=== PATIENT | female | born 1995 | race Hispanic/Latino ===

== ENCOUNTER 2019-06-29 21:16 | Emergency (ER) | payer SELFPAY ==
[~2019-06-29] VITALS: Ht 162.6 cm; Wt 109.0 kg
[~2019-06-29 21:16] MED LIST: BACTRIM DS1 TAB PO; CEPHALEXIN500 M1 PO; CEPHALEXIN500 MG PO; CIPROFLOXACN500 MG PO; IBUPROFEN600 MG PO; KEFLEX500 MG PO; LORTAB 5 OR; LORTAB 7.57.5 MG PO; NO; NO MEDS; OXYCODONE5 MG OR; PRE-NATAL PO; PRENATABS FA
[2019-06-29 22:20] VITALS: BP 110/68
[2019-06-29 22:38] LABS: HEMATOCRIT 35.8 % (37.0-47.0); HEMOGLOBIN 11.9 g/dl (12.0-16.0); IMMATURE GRANULOCYTES 0.3 % (0.0-5.0); MEAN CELL VOLUME 84.6 fL CALC (80.0-100.0); MEAN CORPUSCULAR HGB 28.1 pG CALC (26.0-32.0); MEAN CORPUSCULAR HGB CONC 33.2 g/L CALC (32.0-36.0); NEUT# 3.37 thou/uL (2.00-7.15); RED BLOOD COUNT 4.23 mill/uL (4.20-5.60); RED CELL DISTRI WIDTH 14.7 % (11.5-15.5); URINE BILIRUBIN - DIPSTICK NEGATIVE (NEGATIVE); URINE BLOOD DIPSTICK SMALL (NEGATIVE); URINE COLOR YELLOW; URINE GLUCOSE - DIPSTICK NEGATIVE (NEGATIVE); URINE KETONE NEGATIVE (NEGATIVE); URINE LEUK ESTERASE NEGATIVE (NEGATIVE); URINE PROTEIN - DIPSTICK NEGATIVE (NEG-TRACE); URINE SPECIFIC GRAVITY 1.025; URINE UROBILINOGEN - DIPSTICK 0.2 E.U./dL (0.2)
[2019-06-29 22:40] LABS: URINE NITRITE - DIPSTICK POSITIVE (Negative)
[2019-06-29 22:50] LABS: ALBUMIN 3.7 g/dL (3.2-5.0); ALKALINE PHOSPHATASE 75 u/l (38-126); ANION GAP 12 (6-22 (CALC)); BUN 6 mg/dL (7-17); BUN/CREATININE RATIO 13 (12-20 (CALC)); CARBON DIOXIDE 21 mmol/l (22-30); CHLORIDE 108 mmol/l (95-108); CREATININE 0.5 mg/dL (0.5-1.0); GFR > 60 ML/MIN (>=60 (CALC)); GFR FOR AFR.AMER. > 60 ML/MIN (>=60 (CALC)); POTASSIUM 3.7 mmol/l (3.5-5.1); SGOT/AST 23 u/l (14-36); SODIUM 137 mmol/l (137-146); TOTAL PROTEIN 7.1 g/dL (6.3-8.2)
[2019-06-29 22:51] LABS: URINE BACTERIA MANY hpf; URINE RBC 0-2 RBC/hpf (0-5); URINE SQUAMOUS EPITHELIAL CELL FEW EPI/hpf (0-FEW)
[2019-06-29 22:53] LABS: BILIRUBIN, TOTAL 0.3 mg/dL (0.0-1.4)
[2019-06-29 23:06] LABS: BETA-HCG, QUANT(RESULT NUMBER) 664 mIU/mL
[2019-06-29] MEDS ORDERED: MACRODANTIN100 MG PO (23:39)
== END 2019-06-30 00:30 | disposition home or self-care (01) | DRG 832 ==
LOC: ED 21:16
DX: O20.0 Threatened abortion (principal); O23.41 Unspecified infection of urinary tract in pregnancy, first trimester; B96.20 Unspecified Escherichia coli [E. coli] as the cause of diseases classified elsewhere; O99.331 Smoking (tobacco) complicating pregnancy, first trimester; F17.200 Nicotine dependence, unspecified, uncomplicated; Z3A.00 Weeks of gestation of pregnancy not specified

== ENCOUNTER 2019-12-19 | Emergency (ER) | payer OTHER ==
[~2019-12-19] MED LIST changes: +MACRODANTIN100 MG PO
== END 2019-12-19 16:00 | disposition left against medical advice (07) ==
DX: O26.893 Other specified pregnancy related conditions, third trimester (principal); R10.9 Unspecified abdominal pain; O9A.213 Injury, poisoning and certain other consequences of external causes complicating pregnancy, third trimester; S00.11XA Contusion of right eyelid and periocular area, initial encounter; Y04.0XXA Assault by unarmed brawl or fight, initial encounter; Y92.009 Unspecified place in unspecified non-institutional (private) residence as the place of occurrence of the external cause; S10.91XA Abrasion of unspecified part of neck, initial encounter; Z3A.30 30 weeks gestation of pregnancy; Z91.19 Patient's noncompliance with other medical treatment and regimen

== ENCOUNTER 2020-11-29 16:00 | Observation (INO) | payer OTHER ==
[~2020-11-29] VITALS: Ht 160 cm; Wt 121.2 kg
--- NOTE | 2020-11-29 16:07 | NUR ---
PT AMBULATED TO ROOM # 12 WITH STEADY GAIT FOR BEDSIDE TRIAGE
[2020-11-29 17:26] LABS: HEMOGLOBIN 13.6 g/dl (12.0-16.0); IMMATURE GRANULOCYTES 0.3 % (0.0-5.0); MEAN CELL VOLUME 88.2 fL CALC (80.0-100.0); MEAN CORPUSCULAR HGB 28.6 pG CALC (26.0-32.0); MEAN CORPUSCULAR HGB CONC 32.4 g/dL CAL (32.0-36.0); NEUT# 4.8 thou/uL (2.00-7.15); RED BLOOD COUNT 4.76 mill/uL (4.20-5.60); RED CELL DISTRI WIDTH 13.9 % (11.5-15.5)
[2020-11-29 17:30] LABS: URINE BILIRUBIN - DIPSTICK NEGATIVE (NEGATIVE); URINE BLOOD DIPSTICK TRACE-INTACT (NEGATIVE); URINE COLOR YELLOW; URINE GLUCOSE - DIPSTICK NEGATIVE (NEGATIVE); URINE KETONE NEGATIVE (NEGATIVE); URINE LEUK ESTERASE NEGATIVE (NEGATIVE); URINE NITRITE - DIPSTICK NEGATIVE (Negative); URINE PH 6.5 (4.5-8.0); URINE PROTEIN - DIPSTICK NEGATIVE (NEG-TRACE); URINE SPECIFIC GRAVITY 1.025; URINE UROBILINOGEN - DIPSTICK 0.2 E.U./dL (0.2)
--- NOTE | 2020-11-29 17:30 | NUR ---
UPON REASSESSMENT PT STATES THAT HER PAIN HAS DECREASED FORM 8/10 TO A 4/10. PT IS RESTING WITH LIGHTS DIMMED FOR COMFORT
[2020-11-29 17:44] LABS: ALBUMIN 4.3 g/dL (3.2-5.0); ALKALINE PHOSPHATASE 96 u/l (38-126); ANION GAP 12 (6-22 (CALC)); BUN 9 mg/dL (7-17); BUN/CREATININE RATIO 16 (12-20 (CALC)); CARBON DIOXIDE 23 mmol/l (22-30); CHLORIDE 104 mmol/l (95-108); CREATININE 0.6 mg/dL (0.5-1.0); GFR > 60 ML/MIN (>=60 (CALC)); GFR FOR AFR.AMER. > 60 ML/MIN (>=60 (CALC)); POTASSIUM 4.4 mmol/l (3.5-5.1); SODIUM 135 mmol/l (137-146); TOTAL PROTEIN 8.4 g/dL (6.3-8.2)
[2020-11-29 17:48] LABS: BILIRUBIN, TOTAL 0.9 mg/dL (0.0-1.4); SGOT/AST 53 u/l (14-36)
--- NOTE | 2020-11-29 18:47 | NUR ---
UPON REASSESSMENT PT STATES THAT SHE HAS A HEADACHE OF 6/10. MD NOTIFIED AND MEDICATION IS ORDERED
--- NOTE | 2020-11-29 18:58 | NUR ---
GAVE REPORT TO SUSANNE
--- NOTE | 2020-11-29 19:20 | NUR ---
PT RESTING. NAD. VSS. ADVISED OF ADMISSION. COVID SWAB OBTAINED.
--- NOTE | 2020-11-29 21:10 | NUR ---
IV SITE BURING. FLUIDS AND ANTIBIOTICS STOPPED. ATTEMPTED IV X 2 WITHOUT RELIEF.
--- NOTE | 2020-11-29 21:14 | NUR ---
NEW IV ESTABLISHED. PATIENT AMBULATORY TO BATHROOM WITHOUT ASSIST. AWARE OF PENDING ADMISSION AND TRANSPORT TO FLOOR.
--- NOTE | 2020-11-29 21:36 | NUR ---
IV RESTARTED AND MEDS HANGING. INFILTRATED WHEN TORADOL GIVEN SO TORADOL RE-GIVEN.
--- NOTE | 2020-11-29 22:38 | NUR ---
TO FLOOR WITH HEADING UP MACHINE OPERATOR.
[2020-11-29 22:39] VITALS: BP 113/62
--- NOTE | 2020-11-29 22:45 | NUR ---
PT ARRIVED TO MED SURG UNIT VIA WC ACCOMPANIED BY ED SOCIAL MEDIA EXECUTIVE. PT APPEARS TO BE IN STABLE CONDITION AND IS BEING SETTLED IN BY COMMERCIAL LINES ACCOUNT MANAGER. V/S ASSESSED TO BE STABLE, ORIENTED TO BED, CALL SYSTEM, LIGHTS AND TV. DIET HAS BEEN EXPLAINED TO PT TO BE CLEAR LIQUID DIET UNTIL MIDNIGHT AND THEN SHE WILL GO NPO AFTER MIDNIGHT FOR PROBABLE SURGERY IN AM. I ALSO EXPLAINED TO HER THAT THE SURGEON WILL COME TO SEE HER PRIOR TO SURGERY IN THE MORNING AND THEN HAVE HER SIGN CONSENT FORM, THAT WAY SHE HAS A CLEAR UNDERSTANDING OF WHAT HE WILL BE DOING, SHE VERBALIZED UNDERSTANDING.
--- NOTE | 2020-11-29 23:47 | NUR ---
SPOKE WITH CAM AT [facility], SHE INSTRUCTED ME TO GO AHEAD AND ADMINISTER MIDNIGHT ZOSYN DOSE EVEN THOUGH PREVISOUS DOSE WAS NOT ADMINISTERED UNTIL 2048. SHE STATED WE DID NOT NEED TO DELAY OR SKIP THE 2400 DOSE AND THAT IT SHOULD BE GIVEN SCHEDULED.
[2020-11-30] VITALS (9 sets, daily range): BP systolic 98–127; BP diastolic 60–86
--- NOTE | 2020-11-30 00:09 | NUR ---
PT MEDICATED FOR PAIN 8/10 ON PAIN SCALE. PT APPEARS CALM AT THIS TIME. IVF RUNNING/SITE APPEARS HEALTHY. REVIEWED NPO DIET WITH PT, VERBALIZED UNDERSTANDING. SHE IS ASKING WHAT TIME HER SURGERY IS TOMORROW, DISCUSSED POSSIBLE TIMING WITH WITH HER AND EXPLAINED THAT WE WILL NOT HAVE AN EXACT TIME TONIGHT, VERBALIZED UNDERSTANDING.
--- NOTE | 2020-11-30 00:22 | NUR ---
PT MEDICATED FOR IV ANTIBIOTIC THERAPY AT THIS TIME. LIGHTS TURNED DOWN, PT REPORTS THAT SHE IS STARTING TO FEEL SLIGHT RELIEF FROM PAIN MEDICATION. EYES ARE CLOSED, PT IS RESTING.
--- NOTE | 2020-11-30 05:49 | NUR ---
PT WAS SLEEPING, AWOKE TO MY VOICE. PT REPORTED PAIN 8/10 ON PAIN SCALE, MEDICATED ORDERS PROVIDE AND ARE SCHEDULED FOR PAIN CONTROL AND WITH IV ANTIBIOTIC THERAPY AT THIS TIME. PT WAS SLEEPING AGAIN PRIOR TO MY LEAVING THE ROOM. CALL LIGHT AT SIDE.
--- NOTE | 2020-11-30 10:44 | NUR ---
PT ARRIVED VIA [facility] ACCOMPANIED BY MIRIAN COREA. PT IN STABLE CONDITION A&O X3. PT REPORTS RELIEF OF PAIN, BUT STATES IT HAS GOTTEN "WORSE AGAIN" AFTER MOVING TO THE BED. LAPAROSCOPIC INCISIONS CDI WITH DERMABOND. BILATERAL SCDS APPLIED. O2 VIA NC @2L KEPT IN PLACE, WILL CONTINUE TO MONITOR TO WEAN OFF OF O2. VS TAKEN, VSS. ASSMENT COMPLETED. ENCOURAGED PT TO CALL WHEN GETTING UP OUT OF BED FOR THE FIRST TIME DUE TO ANESTHESIA. PT VERABLIZED UNDERSTANDING. CALL LIGHT LEFT WITHIN REACH. BED PLACED IN LOWEST POSITION.
--- NOTE | 2020-11-30 11:45 | NUR ---
PT LAYING IN BED. PT C/O PAIN 07/06 TO ABD, SCHEDULED IV TORADOL GIVEN. CALL LIGHT WITHIN REACH.
--- NOTE | 2020-11-30 17:24 | NUR ---
PT REQUESTING IV FOR PAIN MEDICATION, PT STATES LORTAB MADE HER "NAUSEOUS". #22 RH INITIATED X1 ATTEMPT BY THIS AUTO BRAKE MECHANIC.
--- NOTE | 2020-11-30 17:45 | NUR ---
PT AGRREABLE TO LAST DOSE OF ABX DUE TO NEW IV SITE THAT WAS PLACED.
--- NOTE | 2020-11-30 18:36 | NUR ---
PT C/O OF NAUSEA AND "FEELING HOT" NO TEMP AT THIS TIME, 97.6
--- NOTE | 2020-11-30 19:50 | NUR ---
PT OFF MED SURG FLOOR VIA WC ACCOMPANIED BY CONDUIT INSTALLER STAFF CHRISTINA. PT APPEARS IN STABLE CONDITION. DC ORDERS AND INSTRUCTIONS REVIEWED WITH PT, VERBALIZED UNDERSTANDING. PRESCRIPTION GIVEN TO PT FOR PAIN. IV WAS REMOVED PRIOR TO PT LEAVING/SITE APPEARS HEALTHY.
== END 2020-11-30 19:50 | disposition home or self-care (01) ==
LOC: ED 16:00 → ED-I 18:50 → ED 18:59 → MS2 19:00
PROVIDERS: ADMIT Student in an Organized Health Care Education/Training Program; ATTEND Student in an Organized Health Care Education/Training Program
DX: K35.80 Unspecified acute appendicitis (principal); C7A.8 Other malignant neuroendocrine tumors; C7B.8 Other secondary neuroendocrine tumors; Z20.822 Contact with and (suspected) exposure to COVID-19
CPT/HCPCS: G0378; J0131; J1100; Q9967

== ENCOUNTER 2020-12-12 13:13 | Inpatient (IN) | payer OTHER ==
[~2020-12-12] VITALS: Ht 162.6 cm; Wt 124.4 kg
[2020-12-14] VITALS (9 sets, daily range): BP systolic 104–121; BP diastolic 60–78
--- NOTE | 2020-12-14 12:24 | NUR ---
RECEIVED CALL FROM JEFFRYE IN THE LAB. PATIENT IS COVID IGG POSITIVE. I NOTIFIED LYNDON COSTA IN THE OPERATING ROOM OF POSITIVE RESULT.
--- NOTE | 2020-12-14 16:08 | NUR ---
PT ARRIVED FROM OR VIA BED WITH STAFF. IV SITE IN PLACE. SCD'S ON, CHANEL INTACT.,MINIMAL AMOUNT OF DRAINAGE NOTED IN JA DRAIN. DRESSING ON ABD IN PLACE.
--- NOTE | 2020-12-14 17:22 | NUR ---
ASSESSMENT IS COMPLETED: IV SITE IS FREE FROM REDNESS OR EDEMA. HR IS REG,PULSES ARE STRONG X4,A BD IS SOFT/DISTENDED WITH HYPO BS. DRESSING ON ABD HAS SOME SHADOWING NOTED ON THE OUTSKIRT OF INCISION. JA DRAIN IN TACT. SMALL AMOUNT OF DRAINAGE NOTED. CHANEL DRAINING YELLOW URINE. SCD IN PLACE. PT ABLE TO ANSWER QUESTIONS. C/O BEING HOT IN THE ROOM FAN HAS BEEN PLACED IN THE ROOM.
--- NOTE | 2020-12-14 19:28 | NUR ---
PT NOTED RESTING IN BED. ALERT AND ORIENTED. NO APPARENT DISTRESS NOTED. RESPIRATIONS EVEN AND UNLABORED. O2 @ 2L/M VIA NC. IV SITE APPEARS HEALTHY WITH IVF INFUSING WITHOUT DIFFICULTY. MIDLINE INCISION DRESSING NOTED, CDI. RLQ DRESSING AT DRAIN SITE, CDI, JA DRAIN WITH BULB COMPRESSED TO SUCTION, SMALL AMOUNT OF SEROSANGUINEOUS DRAINAGE NOTED. CHANEL PATENT DRAINING TO GRAVITY. SCDS APPLIED TO BLE. DISCUSSED POC AND SAFETY PRECAUTIONS. PT VERBALIZED UNDERSTANDING. PT C/O ABD PAIN / AND ROOM BEING HOT. PT MEDICATED WITH PRN DILAUDID FOR PAIN AND FAN REPOSITIONED IN ROOM TO BE CLOSER TO PT. ICE CHIPS PROVIDED. PT DENIES ANY OTHER CURRENT WANTS OR NEEDS. CALL LIGHT WITHIN REACH. WILL CONTINUE TO MONITOR.
--- NOTE | 2020-12-14 21:00 | NUR ---
PT MOVED TO ROOM 261 DUE TO AIR CONDITIONER NOT FUNCTIONING CORRECTLY IN ROOM. FANS AND COOL WET CLOTH PROVIDED. PT APPEARS MORE COMFORTABLE IN CURRENT ROOM.
[2020-12-15] VITALS (9 sets, daily range): BP systolic 90–122; BP diastolic 56–86
--- NOTE | 2020-12-15 01:31 | NUR ---
PT MEDICATED TO ABD PAIN WITH PRN DILAUDID. ICE CHIPS PROVIDED. DRESSING REMAIN CDI. HYPOACTIVE BOWEL SOUNDS NOTED IN ALL 4 QUADRANTS. CHANEL REMAINS PATENT. IV FLUIDS INFUSING WITHOUT DIFFICULTY. CALL LIGHT WITHIN REACH. WILL CONTINUE TO MONITOR.
--- NOTE | 2020-12-15 03:40 | NUR ---
FORGING PRESS SETTER UP AT BEDSIDE TO OBTAIN LABS.
[2020-12-15 06:02] LABS: HEMATOCRIT 35.5 % (37.0-47.0); HEMOGLOBIN 11.4 g/dl (12.0-16.0); IMMATURE GRANULOCYTES 0.4 % (0.0-5.0); MEAN CELL VOLUME 90.1 fL CALC (80.0-100.0); MEAN CORPUSCULAR HGB 28.9 pG CALC (26.0-32.0); MEAN CORPUSCULAR HGB CONC 32.1 g/dL CAL (32.0-36.0); NEUT# 10.97 thou/uL (2.00-7.15); RED BLOOD COUNT 3.94 mill/uL (4.20-5.60); RED CELL DISTRI WIDTH 14.1 % (11.5-15.5)
--- NOTE | 2020-12-15 06:06 | NUR ---
CHANEL CATHETER REMOVED WITH BALLOON AND TIP INTACT. ABD BINDER APPLIED. PT AMBULATED FROM BED TO BATHROOM AND VOIDED WITHOUT DIFFICULTY. AMBULATED WITH STEADY GAIT. MINIMAL SIGNS OF PAIN NOTED. DRESSINGS TO ABD REMAIN CDI. 10ML SEROSANGUINEOUS DRAINAGE EMPTIED FROM JA, BULB COMPRESSED TO SUCTION. PT TOLARATED WELL. WILL CONTINUE TO MONITOR.
[2020-12-15 06:09] LABS: ANION GAP 13 (6-22 (CALC)); BUN 7 mg/dL (7-17); BUN/CREATININE RATIO 13 (12-20 (CALC)); CARBON DIOXIDE 22 mmol/l (22-30); CHLORIDE 104 mmol/l (95-108); CREATININE 0.5 mg/dL (0.5-1.0); GFR > 60 ML/MIN (>=60 (CALC)); GFR FOR AFR.AMER. > 60 ML/MIN (>=60 (CALC)); POTASSIUM 4.5 mmol/l (3.5-5.1); SODIUM 134 mmol/l (137-146)
--- NOTE | 2020-12-15 07:05 | NUR ---
REPORT RECEIVED FROM RACHEL YU.
--- NOTE | 2020-12-15 08:05 | NUR ---
PT RESTING IN SEMI FOWLERS POSITION,A&O X3;VS OBTAINED AND ASSESSMENT COMPLETED;PT REPORTS ABDOMINAL PAIN RATING 9/10 ON THE PAIN SCALE AND REQUESTS PAIN MEDICATION, PT MEDICATED WITH PRN DILAUDID 1MG SLOW IVP AT THIS TIME;PT POST OP DAY #1 OPEN HEMICOLLECTOMY;RESPIRATIONS EVEN AND UNLABORED ON RA WITH CLEAR LUNG SOUNDS NOTED;I.S. AT BEDSIDE AND PT DEMONSTRATED USE, ENCOURAGED USE 10X PER HOUR;ABDOMEN DISTENDED/SOFT ON PALPATION AND HYPOACTIVE IN ALL 4 QUADRANTS;ABDOMINAL DRESSINGS AND BINDER REMAIN IN PLACE & CDI;JA DRAIN NOTED TO RLQ DRAINING SCANT BLOODY DRAINAGE;STRONG PEDAL PULSES WITH SCD'S IN PLACE;#20G TO RH INFUSING LR @ 150ML/HR PER ORDER,SITE APPEARS HEALTHY;NPO DIET REINFORCED AND PT VERBALIZES UNDERSTANDING;PT DENIES ANY ADDITIONAL NEEDS AND IS ENCOURAGED TO CALL FOR ASSISTANCE IF NEEDED;FALL PRECAUTIONS IN PLACE WITH BED IN THE LOWEST POSITION AND CALL LIGHT IN REACH;WILL CONTINUE TO MONITOR
--- NOTE | 2020-12-15 10:43 | NUR ---
PT OOB RESTING IN RECLINER;RESPIRATIONS REMAIN EVEN AND UNLABORED ON RA;PT REPORTS ABDOMINAL PAIN RATING 9/10 ON THE PAIN SCALE AND REQUESTS PRN PAIN MEDICATION, PT MEDICATED WITH DILAUDID 1MG SLOW IVP;ICE CHIPS PROVIDED PER REQUEST;PT DENIES ANY ADDITIONAL NEEDS;ENCOURAGED TO CALL FOR ASSISTANCE IF NEEDED;CALL LIGHT IN REACH;WILL CONTINUE TO MONITOR
--- NOTE | 2020-12-15 11:45 | NUR ---
PT RESTING IN SEMI FOWLERS POSITION;RESPIRATIONS EVEN AND UNLABORED ON RA;PT REPORTS ABDOMINAL PAIN TO RATE A 8/10 AFTER DILAUDID IVP ADMINISTRATION;PT MEDICATED WITH SCHEDULED TORADAL 15MG IVP AND PRN ZOFRAN 4MG IVP FOR NAUSEA AT THIS TIME;JA DRAIN REMAINS PATENT;ABDOMINAL BINDER IN PLACE;IV FLUIDS INFUSING WITH EASE PER ORDER AND ABX STARTED AT THIS TIME;PT DENIES ANY ADDITIONAL NEEDS;ENCOURAGED TO CALL FOR ASSISTANCE IF NEEDED;CALL LIGHT IN REACH;WILL CONTINUE TO MONITOR
--- NOTE | 2020-12-15 12:56 | NUR ---
PT MEDICATED WITH PRN DILAUDID 1MG SLOW IVP FOR ABDOMINAL PAIN RATING 8/10 ON THE PAIN SCALE,WILL CONTINUE TO MONITOR FOR EFFECTIVENESS
--- NOTE | 2020-12-15 14:55 | NUR ---
PT MEDICATED WITH PRN DILAUDID 1MG SLOW IVP BY DONTERN FOR ABDOMINAL PAIN RATING 9/10 ON THE PAIN SCALE,WILL CONTINUE TO MONITOR FOR EFFECTIVENESS
--- NOTE | 2020-12-15 15:35 | NUR ---
PT APPEARS TO BE SLEEPING IN SEMI FOWLERS POSITION;RESPIRATIONS APPEAR EVEN AND UNLABORED ON RA;NO S/S OF DISTRESS NOTED;IV FLUIDS INFUSING WITH EASE TO RH;ABDOMINAL BINDER IN PLACE;ALL SAFETY PRECAUTIONS NOTED WITH BED IN THE LOWEST POSITION AND CALL LIGHT IN REACH;WILL CONTINUE TO MONITOR
--- NOTE | 2020-12-15 16:55 | NUR ---
PT RESTING IN SEMI FOWLERS POSITION REQUESTS PAIN MEDICATION FOR ABDOMINAL PAIN RATING 9/10 ON THE PAIN SCALE,PT MEDICATED WITH PRN DILAUDID 1MG SLOW IVP AT THIS TIME;JA DRAIN ALSO EMPTIED OF 5CC OF BLOODY DRAINAGE;PT DENIES ANY ADDITIONAL NEEDS;CALL LIGHT IN REACH;WILL CONTINUE TO MONITOR
--- NOTE | 2020-12-15 19:05 | NUR ---
REPORT FROM EDGARD RAMOS. ASSUMED PT CARE.
--- NOTE | 2020-12-15 19:53 | NUR ---
PT AMBULATED TO BATHROOM. PT PROVIDED WITH WASH CLOTHS AND NEW TOWELS TO WASH UP IN SINK. LINENS CHANGED AT THIS TIME. PT TOLERATED WELL.
--- NOTE | 2020-12-15 20:40 | NUR ---
PT NOTED RESTING IN BED. ALERT AND ORIENTED. NO APPARENT DISTRESS NOTED. RESPIRATIONS EVEN AND UNLABORED ON RA. IV SITE APPEARS HEALTHY, IVF INFUSING WITHOUT DIFFICULTY. MIDLINE INCISION DRESSING NOTED, CDI. RLQ DRESSING AT DRAIN SITE, CDI, AJ DRAIN WITH BULB COMPRESSED TO SUCTION, SCANT AMOUNT OF SEROSANGUINEOUS DRAINAGE NOTED. ABD BINDER IN PLACE. SCDS TO BLE. DISCUSSED POC AND SAFETY PRECAUTIONS. PT VERBALIZED UNDERSTANDING. PT C/O ABD PAIN 8/10 AND NAUSEA. PT MEDICATED WITH PRN ZOFRAN AND DILAUDID FOR PAIN AND ENCOURAGE REPOSITIONING. ICE WATER PROVIDED. PT DENIES ANY OTHER CURRENT WANTS OR NEEDS. CALL LIGHT WITHIN REACH. WILL CONTINUE TO MONITOR.
--- NOTE | 2020-12-15 22:46 | NUR ---
PT MEDICATED TO ABD PAIN WITH PRN DILAUDID. ICE WATER PROVIDED. DRESSING REMAIN CDI. HYPOACTIVE BOWEL SOUNDS NOTED IN ALL 4 QUADRANTS. JA DRAIN COMPRESSED TO SUCTION WITH SCANT AMOUNT OF BLOODY OUTPUT. IV FLUIDS INFUSING WITHOUT DIFFICULTY. CALL LIGHT WITHIN REACH. WILL CONTINUE TO MONITOR.
--- NOTE | 2020-12-16 03:08 | NUR ---
PT MEDICATED TO ABD PAIN WITH PRN DILAUDID. DRESSING REMAIN CDI. HYPOACTIVE BOWEL SOUNDS NOTED IN ALL 4 QUADRANTS. JA DRAIN COMPRESSED TO SUCTION WITH SCANT AMOUNT OF BLOODY OUTPUT. IV FLUIDS INFUSING WITHOUT DIFFICULTY. CALL LIGHT WITHIN REACH. WILL CONTINUE TO MONITOR.
[2020-12-16 03:45] VITALS: BP 109/76
--- NOTE | 2020-12-16 07:05 | NUR ---
REPORT RECEIVED FROM RACHEL YU.
--- NOTE | 2020-12-16 07:50 | NUR ---
PT RESTING IN SEMI FOWLERS POSITION,A&O X3;VS OBTAINED AND ASSESSMENT COMPLETED;PT REPORTS ABDOMINAL PAIN RATING 8/10 ON THE PAIN SCALE AND REQUESTS PAIN MEDICATION, PT MEDICATED WITH PRN DILAUDID 1MG SLOW IVP AT THIS TIME;PT POD#2 OPEN RT HEMICOLLECTOMY;RESPIRATIONS EVEN AND UNLABORED ON RA,CLEAR LUNG SOUNDS;I.S. AT BEDSIDE AND PT INSTRUCTED ON USE 10X PER HOUR;ABDOMEN DISTENDED/SOFT ON PALPATION AND HYPOACTIVE IN ALL 4 QUADRANTS;DRESSING CHANGE PROVIDED AT THIS TIME TO MIDLINE INCISION PER ORDER,PT TOLERATED WELL;26 TERENCE NOTED;JA DRAIN TO RLQ DRAINING SMALL AMOUNT OF BLOODY DRAINAGE;ABDOMINAL BINDER IN PLACE;STRONG PEDAL PULSES,SCD'S NOTED;#20G TO RIGHT HAND INFUSING LR @ 100ML/HR,SITE APPEARS HEALTHY;NPO DIET REINFORCED;PT DENIES ANY ADDITIONAL NEEDS AT THIS TIME;ENCOURAGED TO CALL FOR ASSISTANCE IF NEEDED;FALL PRECAUTIONS IN PLACE WITH BED IN THE LOWEST POSITION AND CALL LIGHT IN REACH;WILL CONTINUE TO MONITOR
[2020-12-16 07:51] VITALS: BP 110/78
--- NOTE | 2020-12-16 09:55 | NUR ---
PT REPORTS ABDOMINAL PAIN RATING 8/10 ON THE PAIN SCALE, PT MEDICATED WITH PRN DILAUDID 1MG SLOW IVP AT THIS TIME;WILL CONTINUE TO MONITOR FOR EFFECTIVENESS
--- NOTE | 2020-12-16 11:45 | NUR ---
PT RESTING IN RECLINER;RESPIRATIONS EVEN AND UNLABORED ON RA;PT REPORTS ABDOMINAL PAIN RATING 8/10 ON THE PAIN SCALE AND REQUESTS PAIN MEDICATION;PT DECLINED PRN DILAUDID 1MG IVP DUE TO DIZZINESS AND IS MEDICATED WITH SCHEDULED TORADOL 15MG IVP;IV FLUIDS INFUSING WITH EASE PER ORDER, ABX STARTED AT THIS TIME;JA DRAIN PATENT AND ABDOMINAL BINDER IN PLACE;ALL SAFETY PRECAUTIONS IN PLACE WITH CALL LIGHT IN REACH;WILL CONTINUE TO MONITOR
--- NOTE | 2020-12-16 11:51 | NUR ---
AT BEDSIDE DISCUSSING POC WITH PT.
--- NOTE | 2020-12-16 13:40 | NUR ---
PT RESTING IN SEMI FOWLERS POSITION;RESPIRATIONS EVEN AND UNLABORED ON RA;PT REPORTS ABDOMINAL PAIN RATING 8/10 ON THE PAIN SCALE AND REQUESTS PAIN MEDICATION,PT MEDICATED WITH PRN DILAUDID 1MG IVP AT THIS TIME;IV SITE PATENT INFUSING LR @75ML/HR PER ORDER;JA DRAIN REMAIN PATENT;PT DENIES ANY ADDITIONAL NEEDS;ENCOURAGED TO CALL FOR ASSISTANCE IF NEEDED;CALL LIGHT IN REACH;WILL CONTINUE TO MONITOR
--- NOTE | 2020-12-16 15:30 | NUR ---
PT RESTING IN SEMI FOWLERS POSITION;RESPIRATIONS EVEN AND UNLABORED ON RA;PT DENIES ANY CURRENT NEEDS AT THIS TIME;IV FLUIDS INFUSING WITH EASE PER ORDER;JA DRAIN PATENT AND ABDOMINAL BINDER IN PLACE;PT ENCOURAGED TO CALL FOR ASSISTANCE IF NEEDED;FALL PRECAUTIONS IN PLACE WITH CALL LIGHT IN REACH;WILL CONTINUE TO MONITOR
[2020-12-16 15:40] VITALS: BP 111/63
--- NOTE | 2020-12-16 18:00 | NUR ---
PT MEDICATED WITH PRN DILAUDID 1MG IVP FOR ABDOMINAL PAIN RATING 9/10 ON THE PAIN SCALE,WILL CONTINUE TO MONITOR FOR EFFECTIVENESS
--- NOTE | 2020-12-16 19:46 | NUR ---
REPORT FROM EDGARD RAMOS. ASSUMED PT CARE.
[2020-12-16 19:50] VITALS: BP 109/61
--- NOTE | 2020-12-16 20:57 | NUR ---
PT NOTED RESTING IN BED ON CELLPHONE. ALERT AND ORIENTED. NO APPARENT DISTRESS NOTED. RESPIRATIONS EVEN AND UNLABORED. IV SITE APPEARS HEALTHY. ABD BINDER IN PLACE. AJ DRAIN NOTED TO RLQ, WITH SCANT AMOUNT OF BLOOD OUTPUT IN BULB, BULB COMPRESSED TO SUCTION. ABD BINDER REMOVED, DRESSINGS CDI. HYPOACTIVE BOWEL SOUNDS NOTED IN ALL 4 QUADRANTS. PT DENIES ANY CURRENT PAIN OR DISCOMFORT. MEDICATED ORDERED. DISCUSSED POC. PT VERBALIZED UNDERSTANDING. NO CURRENT WANTS OR NEEDS. CALL LIGHT WITHIN REACH. WILL CONTINUE TO MONITOR.
--- NOTE | 2020-12-16 21:55 | NUR ---
PT PROVIDED WITH CLEAN GOWN AND LINENS TO WASH UP IN BATHROOM. PT DECLINED BED LINEN CHANGE AT THIS TIME. PT C/O ABD PAIN 06/05. WILL MEDICATE AND CONTINUE TO MONITOR.
--- NOTE | 2020-12-17 02:08 | NUR ---
PT MEDICATED TO ABD PAIN 8/10 WITH PRN DILAUDID. JA DRAIN COMPRESSED TO SUCTION WITH SCANT AMOUNT OF BLOODY OUTPUT. IV FLUIDS INFUSING WITHOUT DIFFICULTY. CALL LIGHT WITHIN REACH. WILL CONTINUE TO MONITOR.
[2020-12-17 04:00] VITALS: BP 111/66
--- NOTE | 2020-12-17 07:00 | NUR ---
REPORT RECEIVED FROM RACHEL YU.
[2020-12-17 08:18] VITALS: BP 97/61
--- NOTE | 2020-12-17 08:20 | NUR ---
PT RESTING IN SEMI FOWLERS POSITION,A&O X3;VS OBTAINED AND ASSESSMENT COMPLETED;PT POD #3 OPEN RT HEMICOLLECTOMY;RESPIRATIONS EVEN AND UNLABORED ON RA,CLEAR LUNG SOUNDS;I.S. AT BEDSIDE AND PT DEMONSTRATED USE,ENCOURAGED 10X PER HOUR;ABDOMEN DISTENDED/SOFT ON PALPATION AND ACTIVE IN ALL 4 QUADRANTS;MIDLINE INCISIONAL DRESSING CDI;JA DRAIN NOTED RLQ DRAINING SCANT BLOODY DRAINAGE;STRONG PEDAL PULSES,SCD'S IN PLACE;#20G TO RH INFUSING LR @ 75ML/HR,SITE APPEARS HEALTHY;CLEAR LIQUID DIET REINFORCED;PT DENIES ANY ADDITIONAL NEEDS AT THIS TIME AND IS ENCOURAGED TO CALL FOR ASSISTANCE IF NEEDED;FALL PRECAUTIONS IN PLACE WITH BED IN THE LOWEST POSITION AND CALL LIGHT IN REACH;WILL CONTINUE TO MONITOR
--- NOTE | 2020-12-17 10:25 | NUR ---
PT REPORTS ABDOMINAL PAIN RATING 8/10 ON THE PAIN SCALE AND REQUESTS PAIN MEDICATION, PT MEDICATED WITH PRN DILAUDID 1MG SLOW IVP AT THIS TIME;WILL CONTINUE TO MONITOR FOR EFFECTIVENESS
--- NOTE | 2020-12-17 12:20 | NUR ---
PT RESTING IN SEMI FOWLERS POSITION;RESPIRATIONS EVEN AND UNLABORED ON RA;PT REPORTS ABDOMINAL PAIN RATING 8/10 ON THE PAIN SCALE, PT MEDICATED WITH SCHEDULED TORADOL 15MG IVP;IV FLUIDS CONTINUE TO INFUSE WITH EASE TO RIGHT HAND;PT TOLERATING CLEAR LIQUIDS WELL;JA DRAIN PATENT AND TO BULB SUCTION;PT DENIES ANY ADDITIONAL NEEDS AND IS ENCOURAGED TO CALL FOR ASSISTANCE IF NEEDED;CALL LIGHT IN REACH;WILL CONTINUE TO MONITOR
--- NOTE | 2020-12-17 12:26 | NUR ---
NEW ORDERS RECEIVED AT THIS TIME BY .
--- NOTE | 2020-12-17 14:50 | NUR ---
PT RESTING IN SEMI FOWLERS POSITION WATCHING TV;PT REPORTS ABDOMINAL PAIN RATING 8/10 ON THE PAIN SCALE AND REQUESTS PRN PAIN MEDICATION;PT MEDICATED WITH PERCOCET 5/325MG PO 2 COMBO PER ORDER;WILL CONTINUE TO MONITOR FOR EFFECTIVENESS
[2020-12-17 16:03] VITALS: BP 107/72
--- NOTE | 2020-12-17 17:30 | NUR ---
PT RESTING IN SEMI FOWLERS POSITION;RESPIRATIONS EVEN AND UNLABORED ON RA;PT REPORTS ABDOMINAL PAIN RATING 7/10 ON THE PAIN SCALE AND IS MEDICATED WITH SCHEDULED TORADOL 15MG IVP;IV SITE TO RH PATENT;JA DRAIN EMPTIED OF 2CC OF BLOODY DRAINAGE;ABDOMINAL BINDER REMAINS IN PLACE;PT TOLERATING FULL LIQUID DIET WELL;PT DENIES ANY ADDITIONAL NEEDS;ENCOURAGED TO CALL FOR ASSISTANCE IF NEEDED;CALL LIGHT IN REACH;WILL CONTINUE T0 MONITOR
[2020-12-17 19:00] VITALS: BP 108/72
--- NOTE | 2020-12-17 21:21 | NUR ---
190-BSSR w/ dayshift nurse via sbar format. Found patient resting in bed, talking on the phone, c/o pain to abdomen, previously medicated for pain, no s/s of distress noted, on room air, resp are even and unlabored, JA drain to right side, scant drainage noted, dressing to mid abdomen is CDI, patient is wearing binder, educated about pain medication schedule, POC, hourly roundings, safety measures, and call garcia system, patient voices understanding, encouraged to use ISP, voices understanding. call garcia at reach, will follow up with medications. 1929-Assessment completed at this time, see interventions for details. 2129-Medicated for pain per MD orders, no s/s of distress, talking on the phone, dressing to mid abdomen is CDI, Ja drain with no drainage noted, will follow up with pain reassessment. Call garcia at reach.
--- NOTE | 2020-12-17 23:00 | NUR ---
PT RECEIVED FROM ED TO ROOM 278. ARRIVES VIA STRETCHER ACCOMPANIED BY THERESA COREA. PT AMBULATORY TO BED. GAIT UNSTEADY. PT DENIES PAIN AT THIS TIME. ORIENTED TO UNIT, ROOM, CALL CHERY, LIGHTS, TV. ICE WATER PROVIDED. CALL CHERY WITHIN REACH. AGREES TO CALL PRN.
--- NOTE | 2020-12-18 00:32 | NUR ---
MEDICATED PATIENT FOR PAIN TO ABDOMEN AREA. NO S/S OF DISTRESS, TORADOL SCHEDULED. PATIENT IS AWAKE, WATCHING TV, NO OTHER NEEDS REPORTED.
--- NOTE | 2020-12-18 02:40 | NUR ---
medicated patient for abdominal pain per MD orders, no s/s of distress noted, will follow up with pain assessment. Dressing to mid abdomen is CDI, binder in place, Kj drain empty, scant drainage noted.
--- NOTE | 2020-12-18 03:49 | NUR ---
PATIENT IS RESTING IN BED WITH EYES CLOSED; AROUSES TO STIMULI, STATES PAIN IS BETTER THAT 07/06, NOW IS 4/10, NO S/S OF DISTRESS NOTED, WILL FOLLOW UP WITH FREQUENTLY ROUNDINGS.
[2020-12-18 04:00] VITALS: BP 110/72
--- NOTE | 2020-12-18 05:55 | NUR ---
PATIENT REFUSES HER SCHEDULE DOSE OF TORADOL, RATES PAIN AT 3/10, TO MID ABDOMEN, ACHING. WASTED MEDICATION.
[2020-12-18 07:45] VITALS: BP 101/71
--- NOTE | 2020-12-18 07:45 | NUR ---
PATIENT AWAKEN FROM SLEEP AT THIS TIME SHORE WORKING SUPERVISOR DONE. PATIENT SURGICAL SITE HAS SCANT AMOUNT OF OLD DRY DRAINAGE NOTED ON ABD PAD. ABDOMINAL BINDER IN PLACE AT THIS TIME JA DRAIN HAD 1CC OF SEROUSANGUINEOUS DRAINAGE EMPTIED AT THIS TIME. PATIENT STATES HER IV SITE STINGS WHEN MEDICATION IS PUT INTO IT. IV FLUSHES WELL AND WITHOUT RESISTANCE. IV SITE DUE TO BE CHANGED TODAY BUT PATIENT REFUSES TO HAVE IT CHANGED AT THIS TIME. RN SHIFT ASSESSMENT DONE SEE INTERVENTIONS. PATIENT STATES HER PAIN IS A 4 AT THIS TIME. PATIENT WAS PREVIOUSLY MEDICATED AND PATIENT ADVISED. CALL LIGHT IS WITHIN REACH SIDERAILS UP X 2. SCD ON AT THIS TIME TIME.
--- NOTE | 2020-12-18 11:46 | NUR ---
PATIENT RESTING IN BED AT THIS TIME CALL LIGHT WITHIN REACH SIDERAILS UP X 2. PATIENT STATES HER PAIN IS A 4 AT THIS TIME. PATIENTS DRESSING CHANGED AT THIS TIME TIME. INCISION LINE HAS 26 TERENCE AND INCISION LINE IS WELL APPROXIMATED AND NO SIGNS OR SYMPTOMS OF INFECTION NOTED AT THIS TIME. INCISION CLEANSED WITH NORMAL SALINE AND DRY ABD PAD APPLIED WITH PAPER TAPE. PATIENT TOLERATED DRESSING CHANGE WITHOUT ANY ISSUES OR PAIN. JA DRAIN PATENT AND INTACT DRESSING DRY AT THIS TIME.
--- NOTE | 2020-12-18 13:10 | NUR ---
PATIENT LAYING IN BED AT THIS TIME. JA DRAIN REMOVED UNDER ASCEPTIC TECHNIQUES AREA CLEASED WITH NORMAL SALINE AND DRY DRESSING APPLIED WITH TEGADERM COVER. PATIENT DENIED ANY PAIN AT THIS TIME. PATIENT DID STATE THAT SHE IS NAUSEATED AND 4MG OF ZOFRAN GIVEN AT THIS TIME. PATIENT SIDERAILS ARE UP CALL LIGHT WITHIN REACH.
--- NOTE | 2020-12-18 14:27 | NUR ---
PATIENT C/0 PAIN IN ABDOMINAL AREA PATIENT STATES HER PAIN IS A 6 AND HER FACIAL SCALE IS A 1 PATIENT GIVEN 50MG OF TRAMADOL AT THIS TIME. PATIENT WILL CONTINUE TO BE MONITORED.
[2020-12-18 15:00] VITALS: BP 98/58
--- NOTE | 2020-12-18 16:11 | NUR ---
PATIENT RESTING IN BED WITH EYES CLOTHES RESPIRATIONS EASY AND UNLABORED ALL PERSONAL POSSESSION NEAR BEDSIDE CALL LIGHT WITHIN REACH SIDERAILS UP X2.
[2020-12-18 19:00] VITALS: BP 138/91
--- NOTE | 2020-12-18 20:00 | NUR ---
RECEIVED REPORT FROM NURSE TYLOR, PATIENT RESTING IN BED, TALKING ON THE PHONE, BREATHING EVEN AND UNLABORED, WITH SLAINE LOCK ON LEFT HAND G24 PATENT FLUSHES WELL, REPORTED BM X 1 LARGE HARD BROWN STOOL, MIDLINE DRESSING CDI, WITH ABDOMINAL BINDER, NEW DRESSING APPLIED TO RLQ DRESSING SLIGHTLY SATURATED NEW 4X4 AND COVERED WITH TEGADERM, USED AND PERFORMED SPIROMETER INSPIRATORY VOLUME 1000, C/O ABOMINAL PAIN PS 9/10 WILL MEDICATE, CALL LIGHT AT REACH.
--- NOTE | 2020-12-19 | NUR ---
PATIENT RESTING IN BED WITH EYES CLOSED, BREATHIN UNLABORED, CALL LIGHT AT REACH.
--- NOTE | 2020-12-19 03:33 | NUR ---
PATIENT C/O PAIN ON OPERATIVE SITE PRN TRAMADOL GIVEN WILL REEVALUATE, PATIENT CURRENTLY RESTING TALKING ON THE PHONE CALL LIGHT AT REACH.
[2020-12-19 04:00] VITALS: BP 111/74
[2020-12-19 07:37] VITALS: BP 110/76
--- NOTE | 2020-12-19 07:37 | NUR ---
PATIENT AWAKEN FROM SLEEP AT THIS TIME. PATIENT STATES HER PAIN LEVEL IS A "3". PATIENT ABDOMINAL DRESSING DRY AND INTACT AND JA DRAIN SITE DRESSING DRY AND INTACT (JA DRAIN REMOVED ON 12/18/20). PATIENTS BINDER PUT BACK IN PLACE. CALL LIGHT NEAR SIDERAILS ARE UP X 2.
[2020-12-19] MEDS ORDERED: PERCOCET 5/325M1 TAB PO (08:40)
--- NOTE | 2020-12-19 09:30 | NUR ---
PATIENT D/C AT THIS TIME. ABDOMINAL DRESSING CHANGED AT THIS TIME AND NEW DRY DRESSING APPLIED. JA DRAIN SITE INCISION DRESSING CHANGED AT THIS TIME. AND DRY DRESSING APPLIED. INCISIONAL LINE HAS 26 TERENCE AND LINE IS APPROXIMATE WITH NO SIGNS OF INCISIONAL LINE INFECTION. JA DRAIN INCISION IS CLOSED AND SMALL AMOUNT OF DRY BLOOD NOTED AND CLEANDED WITH NORMAL SALINE AND NEW DRY DRESSING APPLIED AT THIS TIME. PATIENT EDUCATED ON HOW TO CHANGE DRESSINGS, SHOWERING AND HOW TO WATCH FOR INFECTIONS. PATIENT ALSO GIVEN APPOINTMENT TO SEE DR. MELLO ON December AT 12:45PM. PATIENT WAS ALSO GIVEN 50MG OF TRAMADOL FOR A PAIN IN ABDOMINAL AREA OF 4 OUT OF THE PAIN SCALE OF 0-10. PATIENT VERBALIZED ALL UNDERSTANDING OF SELF CARE AND FOLLOW UP INFORMATION. PATIENT WAS HANDED A PRESCRIPTION OF PERCOCET 5/325MG TO BE FILLED. COPY IN CHART.
--- NOTE | 2020-12-19 09:41 | NUR ---
Discharge instructions given. Patient verbalizes understanding of same. Discharged in stable condition via Wheelchair to Home with family. All belongings sent with pt.
== END 2020-12-19 09:41 | disposition home or self-care (01) | DRG 828 ==
LOC: MS2 12-14 09:30
PROVIDERS: ADMIT Surgery; ATTEND Surgery
PROC: 0DTF0ZZ Resection of Right Large Intestine, Open Approach (ICD-10-PCS; principal; 2020-12-14)
DX: C7A.8 Other malignant neuroendocrine tumors (principal); Z20.822 Contact with and (suspected) exposure to COVID-19
CPT/HCPCS: J0131; J1100; J1650

== ENCOUNTER 2020-12-26 19:37 | Emergency (ER) | payer OTHER ==
[~2020-12-26] VITALS: Ht 162.6 cm; Wt 117.0 kg
[~2020-12-26 19:37] MED LIST changes: +PERCOCET 5/325M1 TAB PO
[2020-12-26] MEDS ORDERED: KEFLEX500 MG PO (20:50)
[2020-12-26 21:00] VITALS: BP 144/74
== END 2020-12-26 21:00 | disposition home or self-care (01) ==
LOC: ED 19:37
DX: T81.31XA Disruption of external operation (surgical) wound, not elsewhere classified, initial encounter (principal); Y83.6 Removal of other organ (partial) (total) as the cause of abnormal reaction of the patient, or of later complication, without mention of misadventure at the time of the procedure

== ENCOUNTER 2021-07-01 06:23 | Emergency (ER) | payer OTHER ==
[~2021-07-01] VITALS: Ht 162.6 cm; Wt 113.0 kg
[2021-07-01] MEDS ORDERED: IBUPROFEN600 MG PO (07:09)
[2021-07-01 07:33] VITALS: BP 128/80
== END 2021-07-01 07:40 | disposition home or self-care (01) ==
LOC: ED 06:23
DX: S83.91XA Sprain of unspecified site of right knee, initial encounter (principal); W01.0XXA Fall on same level from slipping, tripping and stumbling without subsequent striking against object, initial encounter; Y92.009 Unspecified place in unspecified non-institutional (private) residence as the place of occurrence of the external cause
CPT/HCPCS: L1830

== ENCOUNTER 2021-09-18 13:47 | Emergency (ER) | payer OTHER ==
[~2021-09-18] VITALS: Ht 162.6 cm; Wt 100.0 kg
[2021-09-18 14:58] LABS: HEMATOCRIT 36.8 % (37.0-47.0); HEMOGLOBIN 12.3 g/dl (12.0-16.0); IMMATURE GRANULOCYTES 0.2 % (0.0-5.0); MEAN CELL VOLUME 89.3 fL CALC (80.0-100.0); MEAN CORPUSCULAR HGB 29.9 pG CALC (26.0-32.0); MEAN CORPUSCULAR HGB CONC 33.4 g/dL CAL (32.0-36.0); NEUT# 3.57 thou/uL (2.00-7.15); RED BLOOD COUNT 4.12 mill/uL (4.20-5.60); RED CELL DISTRI WIDTH 13.3 % (11.5-15.5)
[2021-09-18 15:08] LABS: URINE BILIRUBIN - DIPSTICK NEGATIVE (NEGATIVE); URINE BLOOD DIPSTICK SMALL (NEGATIVE); URINE COLOR YELLOW; URINE GLUCOSE - DIPSTICK NEGATIVE (NEGATIVE); URINE KETONE TRACE mg/dL (NEGATIVE); URINE LEUK ESTERASE NEGATIVE (NEGATIVE); URINE PH 7.5 (4.5-8.0); URINE PROTEIN - DIPSTICK NEGATIVE (NEG-TRACE); URINE UROBILINOGEN - DIPSTICK 0.2 E.U./dL (0.2)
[2021-09-18 15:28] LABS: URINE NITRITE - DIPSTICK NEGATIVE (Negative)
[2021-09-18 15:29] LABS: URINE BACTERIA FEW hpf; URINE SQUAMOUS EPITHELIAL CELL FEW EPI/hpf (0-FEW)
[2021-09-18 15:29] LABS: ALBUMIN 4.1 g/dL (3.2-5.0); ALKALINE PHOSPHATASE 70 u/l (38-126); ANION GAP 13 (6-22 (CALC)); BILIRUBIN, TOTAL 0.7 mg/dL (0.0-1.4); BUN 5 mg/dL (7-17); BUN/CREATININE RATIO 8 (12-20 (CALC)); CARBON DIOXIDE 23 mmol/l (22-30); CHLORIDE 104 mmol/l (95-108); CREATININE 0.6 mg/dL (0.5-1.0); GFR > 60 ML/MIN (>=60 (CALC)); GFR FOR AFR.AMER. > 60 ML/MIN (>=60 (CALC)); LIPASE 27 u/l (23-300); POTASSIUM 3.8 mmol/l (3.5-5.1); SODIUM 136 mmol/l (137-146)
[2021-09-18 15:38] LABS: SGOT/AST 52 u/l (14-36)
[2021-09-18] MEDS ORDERED: NITROFURANTN100 M2 PO (17:11)
[2021-09-18 17:37] VITALS: BP 122/76
== END 2021-09-18 17:39 | disposition home or self-care (01) ==
LOC: ED 13:47
PROVIDERS: Family Medicine
DX: N89.8 Other specified noninflammatory disorders of vagina (principal); N39.0 Urinary tract infection, site not specified; R10.32 Left lower quadrant pain; R10.31 Right lower quadrant pain; N83.201 Unspecified ovarian cyst, right side; E66.9 Obesity, unspecified; Z20.2 Contact with and (suspected) exposure to infections with a predominantly sexual mode of transmission
CPT/HCPCS: J0561

== ENCOUNTER 2021-10-12 10:52 | Emergency (ER) | payer OTHER ==
[~2021-10-12] VITALS: Ht 162.6 cm; Wt 110.0 kg
[~2021-10-12 10:52] MED LIST changes: +NITROFURANTN100 M2 PO
[2021-10-12 11:29] LABS: HEMATOCRIT 40.3 % (37.0-47.0); HEMOGLOBIN 13.3 g/dl (12.0-16.0); IMMATURE GRANULOCYTES 0.1 % (0.0-5.0); MEAN CORPUSCULAR HGB 29.7 pG CALC (26.0-32.0); NEUT# 4.86 thou/uL (2.00-7.15); RED BLOOD COUNT 4.48 mill/uL (4.20-5.60); RED CELL DISTRI WIDTH 13.2 % (11.5-15.5)
[2021-10-12 11:39] LABS: ALKALINE PHOSPHATASE 92 u/l (38-126); ANION GAP 11 (6-22 (CALC)); BILIRUBIN, TOTAL 0.5 mg/dL (0.0-1.4); BUN 7 mg/dL (7-17); BUN/CREATININE RATIO 13 (12-20 (CALC)); CARBON DIOXIDE 25 mmol/l (22-30); CHLORIDE 104 mmol/l (95-108); CREATININE 0.5 mg/dL (0.5-1.0); GFR > 60 ML/MIN (>=60 (CALC)); GFR FOR AFR.AMER. > 60 ML/MIN (>=60 (CALC)); SGOT/AST 28 u/l (14-36); SODIUM 136 mmol/l (137-146); TOTAL PROTEIN 7.9 g/dL (6.3-8.2)
[2021-10-12] MEDS ORDERED: MEDDOSEPAK PO (13:54)
[2021-10-12] MEDS ORDERED: PEPCID20 MG PO (13:54)
[2021-10-12] MEDS ORDERED: DIPHENHYDRAM50 M2 PO (13:54)
[2021-10-12 14:30] VITALS: BP 128/76
== END 2021-10-12 14:29 | disposition home or self-care (01) ==
LOC: ED 10:52
PROVIDERS: Emergency Medicine
DX: T78.3XXA Angioneurotic edema, initial encounter (principal)

== ENCOUNTER 2021-10-13 15:27 | Emergency (ER) | payer OTHER ==
[~2021-10-13] VITALS: Ht 162.6 cm; Wt 118.1 kg
[~2021-10-13 15:27] MED LIST changes: +DIPHENHYDRAM50 M2 PO; +MEDDOSEPAK PO; +PEPCID20 MG PO
[2021-10-13 17:16] VITALS: BP 135/68
== END 2021-10-13 17:17 | disposition home or self-care (01) ==
LOC: ED 15:27
DX: T78.40XA Allergy, unspecified, initial encounter (principal); X58.XXXA Exposure to other specified factors, initial encounter

== ENCOUNTER 2022-11-20 21:15 | Emergency (ER) | payer OTHER ==
[~2022-11-20] VITALS: Ht 162.6 cm; Wt 120.0 kg
[2022-11-20] MEDS ORDERED: PREDNISONE50 MG PO (21:36)
[2022-11-20 22:10] VITALS: BP 125/95
== END 2022-11-20 22:20 | disposition home or self-care (01) ==
LOC: ED 21:15
DX: T49.4X1A Poisoning by keratolytics, keratoplastics, and other hair treatment drugs and preparations, accidental (unintentional), initial encounter (principal); L23.3 Allergic contact dermatitis due to drugs in contact with skin

== ENCOUNTER 2024-06-13 14:30 | Emergency (ER) | payer OTHER ==
[~2024-06-13] VITALS: Ht 162.6 cm; Wt 113.6 kg
[2024-06-13] VITALS (7 sets, daily range): BP systolic 90–128; BP diastolic 53–74
[~2024-06-13 14:30] MED LIST changes: +AMOXICILLIN500 M2 PO; +PREDNISONE50 MG PO; +PRENATAL MULTIV PO
[2024-06-13] MEDS ORDERED: CYCLOBENZAPRINE HCL 5 MG TAB PO ONE (14:55)
[2024-06-13] MEDS ORDERED: KETOROLAC TROMETHAMINE 30 MG/ML SDV IM ONE (14:55)
[2024-06-13] MEDS ORDERED: oxyCODONE 5MG/ ACETAMINOPHEN 325MG TAB PO ONE (16:20)
[2024-06-13] MEDS ORDERED: MOTRIN800 MG PO (17:23)
== END 2024-06-13 17:50 | disposition home or self-care (01) ==
LOC: ED 14:30
DX: S93.401A Sprain of unspecified ligament of right ankle, initial encounter (principal); X50.0XXA Overexertion from strenuous movement or load, initial encounter; Y92.009 Unspecified place in unspecified non-institutional (private) residence as the place of occurrence of the external cause

== ENCOUNTER 2024-07-17 21:57 | Emergency (ER) | payer OTHER ==
[~2024-07-17] VITALS: Ht 162.6 cm; Wt 115.0 kg
[~2024-07-17 21:57] MED LIST changes: +MOTRIN800 MG PO
[2024-07-17] MEDS ORDERED: SODIUM CHLORIDE 0.9% 1,000 ML IV STA (22:17)
[2024-07-17] MEDS ORDERED: PROMETHAZINE HCL 25 MG/ML AMP IV ONE (22:20)
[2024-07-17] MEDS ORDERED: LOPERAMIDE HCL 2 MG CAP PO ONE (22:20)
[2024-07-17] MEDS ORDERED: KETOROLAC TROMETHAMINE 30 MG/ML SDV IV ONE (22:20)
[2024-07-17 22:32] LABS: BASO% 0.2 % (0-3); EOS% 0.4 % (0-8); HEMATOCRIT 37.1 % (37.0-47.0); HEMOGLOBIN 12.2 g/dl (12.0-16.0); IMMATURE GRANULOCYTES 0.1 % (0.0-5.0); LYMPH% 8.6 % (15-41); MEAN CELL VOLUME 85.5 fL CALC (80.0-100.0); MEAN CORPUSCULAR HGB 28.1 pG CALC (26.0-32.0); MEAN CORPUSCULAR HGB CONC 32.9 g/dL CAL (32.0-36.0); NEUT# 11.23 thou/uL (2.00-7.15); NEUT% 85.7 % (42-76); RED BLOOD COUNT 4.34 mill/uL (4.20-5.60); RED CELL DISTRI WIDTH 13.7 % (11.5-15.5)
[2024-07-17 22:32] LABS: URINE BILIRUBIN - DIPSTICK Negative (NEGATIVE); URINE BLOOD DIPSTICK Trace-lysed (NEGATIVE); URINE GLUCOSE - DIPSTICK Negative (NEGATIVE); URINE KETONE Negative (NEGATIVE); URINE LEUK ESTERASE Negative (NEGATIVE); URINE NITRITE - DIPSTICK Negative (Negative); URINE PH 5.5 (4.5-8.0); URINE PROTEIN - DIPSTICK Negative (NEG-TRACE); URINE SPECIFIC GRAVITY >=1.030; URINE UROBILINOGEN - DIPSTICK 0.2 E.U./dL (0.2)
[2024-07-17 22:34] LABS: URINE COLOR Yellow
[2024-07-17 22:50] LABS: CREATININE 0.6 mg/dL (0.5-1.0); POTASSIUM 3.7 mmol/l (3.5-5.1)
[2024-07-17 22:54] LABS: ALBUMIN 4.2 g/dL (3.2-5.0); BILIRUBIN, TOTAL 0.5 mg/dL (0.02-1.3); TOTAL PROTEIN 7.7 g/dL (6.3-8.2)
[2024-07-17] MEDS ORDERED: DiphenhydrAMINE HCL 50 MG/ML SDV IV ONE (23:00)
[2024-07-17 23:27] VITALS: BP 112/59
[2024-07-17 23:31] VITALS: BP 99/61
[2024-07-17] MEDS ORDERED: ONDANSETRON4 MG PO (23:34)
[2024-07-17] MEDS ORDERED: DICYCLOMINE HYD10 MG PO (23:34)
[2024-07-17 23:50] VITALS: BP 99/61
== END 2024-07-17 23:50 | disposition home or self-care (01) ==
LOC: ED 21:57
PROVIDERS: Family Medicine
DX: A08.4 Viral intestinal infection, unspecified (principal); Z20.822 Contact with and (suspected) exposure to COVID-19

== ENCOUNTER 2024-07-26 17:54 | Emergency (ER) | payer OTHER ==
[~2024-07-26] VITALS: Ht 162.6 cm; Wt 99.7 kg
[~2024-07-26 17:54] MED LIST changes: +DICYCLOMINE HYD10 MG PO; +ONDANSETRON4 MG PO
[2024-07-26] MEDS ORDERED: ONDANSETRON HCl 4 MG/2 ML SDV IV STA (18:26)
[2024-07-26] MEDS ORDERED: SODIUM CHLORIDE 0.9% 1,000 ML IV STA (18:26)
[2024-07-26] MEDS ORDERED: KETOROLAC TROMETHAMINE 30 MG/ML SDV IV STA (18:26)
[2024-07-26 18:39] VITALS: BP 109/68
[2024-07-26 18:57] LABS: BASO% 0.2 % (0-3); HEMATOCRIT 38.9 % (37.0-47.0); HEMOGLOBIN 12.3 g/dl (12.0-16.0); IMMATURE GRANULOCYTES 1.2 % (0.0-5.0); LYMPH% 20.2 % (15-41); MEAN CELL VOLUME 86.3 fL CALC (80.0-100.0); MEAN CORPUSCULAR HGB 27.3 pG CALC (26.0-32.0); MEAN CORPUSCULAR HGB CONC 31.6 g/dL CAL (32.0-36.0); MONO% 5.7 % (2-13); NEUT# 5.94 thou/uL (2.00-7.15); NEUT% 72.7 % (42-76); RED BLOOD COUNT 4.51 mill/uL (4.20-5.60); RED CELL DISTRI WIDTH 14.3 % (11.5-15.5)
[2024-07-26 18:58] LABS: URINE BILIRUBIN - DIPSTICK Negative (NEGATIVE); URINE BLOOD DIPSTICK Trace-intact (NEGATIVE); URINE COLOR Yellow; URINE GLUCOSE - DIPSTICK Negative (NEGATIVE); URINE KETONE Negative (NEGATIVE); URINE LEUK ESTERASE Small (NEGATIVE); URINE NITRITE - DIPSTICK Positive (Negative); URINE PH 7.5 (4.5-8.0); URINE PROTEIN - DIPSTICK Negative (NEG-TRACE); URINE SPECIFIC GRAVITY 1.015; URINE UROBILINOGEN - DIPSTICK 0.2 E.U./dL (0.2)
[2024-07-26 19:00] VITALS: BP 99/64
[2024-07-26 19:04] LABS: URINE WBC 20-50 WBC/hpf (0-5)
[2024-07-26 19:05] LABS: URINE BACTERIA MANY hpf; URINE RBC 0-2 RBC/hpf (0-5); URINE SQUAMOUS EPITHELIAL CELL FEW EPI/hpf (0-FEW)
[2024-07-26 19:11] LABS: ALBUMIN 4.3 g/dL (3.2-5.0); CREATININE 0.8 mg/dL (0.5-1.0); POTASSIUM 3.7 mmol/l (3.5-5.1); TOTAL PROTEIN 7.7 g/dL (6.3-8.2)
[2024-07-26 19:13] LABS: BILIRUBIN, TOTAL 0.8 mg/dL (0.02-1.3)
[2024-07-26 19:15] VITALS: BP 99/67
[2024-07-26] MEDS ORDERED: cefTRIAXone SODIUM 1 GM/VIAL SDV ONE (19:22)
[2024-07-26 19:30] VITALS: BP 98/60
[2024-07-26] MEDS ORDERED: NITROFURANTN100 M2 PO (20:52)
[2024-07-26 21:05] VITALS: BP 98/60
== END 2024-07-26 21:14 | disposition home or self-care (01) ==
LOC: ED 17:54
PROVIDERS: Nurse Practitioner
DX: N39.0 Urinary tract infection, site not specified (principal); B96.20 Unspecified Escherichia coli [E. coli] as the cause of diseases classified elsewhere
CPT/HCPCS: Q9967